=== PATIENT | male | born 1970 | race Caucasian/White ===

== ENCOUNTER 2018-03-24 20:31 | Emergency (ER) | payer BC ==
[~2018-03-24 20:31] MED LIST: Iopamidol 370 76% 100 ML VIAL ONE
[2018-03-24] MEDS ORDERED: Pantoprazole 40 MG VIAL ONE (20:56)
[2018-03-24] MEDS ORDERED: Sodium Chloride 0.9% 1,000 ML ONE (20:56)
[2018-03-24] MEDS ORDERED: Ondansetron HCl/PF 4 MG/2 ML Vial ONE (20:56)
[2018-03-24 21:23] LABS: #Basophils 0.1 thou/uL (0.0-0.2); #Lymphocytes 0.5 thou/uL (1.20-3.40); #Monocytes 0.7 thou/uL (0.11-0.59); #Neutrophils 13.6 thou/uL (1.40-6.50); %Basophils 0.4 % (0.0-1.0); %Eosinophils 0.1 % (0.0-10.0); %Lymphocytes 3.5 % (21.0-51.0); Hemoglobin 14.7 g/dL (14.0-18.0); Mean Corpuscular HGB CONC 33.4 g/dL (32.0-36.0); Mean Corpuscular Hemoglobin 27.7 pg (27.0-31.0); Mean Platelet Volume 7.6 fL (7.4-10.4); Platelet Count 238 thou/uL (130-400); RBC Distribution Width 11.8 % (11.5-14.5); White Blood Cell (WBC) Count 14.9 thou/uL (4.8-10.8)
[2018-03-24] MEDS ORDERED: Lidocaine Viscous Sol 2% 15 ml UD Cup ONE (21:29)
[2018-03-24] MEDS ORDERED: Mag-Al Plus 1200 MG/1200 MG/120 MG/30 ML UDCUP ONE (21:29)
[2018-03-24 21:34] LABS: Bilirubin Negative (Negative); Blood, Urine Negative (Negative); Clarity Clear (Clear); Glucose, Urine (Dipstick) Negative (Negative); Leukocyte Negative (Negative); Nitrite Negative (Negative); Protein, Urine (Dipstick) Negative (Neg-Trace); Urobilinogen 0.2 mg/dL (0.2-1.0); pH, Urine 5.5 (5.0-9.0)
[2018-03-24 21:41] LABS: ALT (SGPT) 59 U/L (8-55); AST (SGOT) 42 U/L (5-34); Albumin 4.2 g/dL (3.5-5.0); Alkaline Phosphatase 62 U/L (40-150); Anion Gap 14 mmol/L (10-20); BUN (Urea Nitrogen) 15 mg/dL (8.9-20.6); Bilirubin, Total 0.6 mg/dL (0.2-1.2); Calc. Creatinine Clearance 0 mL/min (70-130); Carbon Dioxide 26 mmol/L (22-29); Chloride 103 mmol/L (98-107); Estimated GFR-MDRD 72; Globulin 2.4 g/dL (2.4-3.5); Glucose 118 mg/dL (70-105); Lipase 25 U/L (8-78); Potassium 4.3 mmol/L (3.5-5.1); Protein, Total 6.6 g/dL (6.0-8.3); Sodium 139 mmol/L (136-145)
[2018-03-24 21:42] LABS: CKMB 1.2 ng/mL (0-6.6); Troponin I Less than 0.010 ng/mL (< 0.028)
--- NOTE | 2018-03-24 22:41 | CT ---
ABDOMEN CT WITH CONTRAST PELVIC CT WITH CONTRAST 03/24/18 HISTORY: Pain. Diarrhea. COMPARISON: None. TECHNIQUE: Abdomen and pelvic CT are performed with IV contrast. Enteric contrast was not administered. Coronal reformatted images are submitted for interpretation. FINDINGS: ABDOMEN CT: Lung bases demonstrate atelectatic changes. Heart size is normal. No pericardial effusion. The visual ized aorta has a normal caliber. No periaortic fat stranding. Nonspecific periportal edema. Portal vein is patent. Gallbladder is unremarkable. There are nonspecific, nonenlarged as well as mildly enlarged mesenteric lymph nodes. Correlate for m esenteric lymphadenitis. No mesenteric mass, free air or free fluid. Limited evaluation of the alimen tary canal due to lack of oral contrast. Gastric mucosa, duodenum and multiple normal caliber small b owel loops are normal. Ileocecal junction is normal. Normal caliber appendix. Scattered fecal materia l in a nondistended, nondilated colon. Occasional diverticulum. No diverticulitis. Liver, spleen, pancreas, and adrenal glands have appropriate enhancement. Heterogeneous enhancement of the left and right kidney with striated nephrogram phase suggesting pyel onephritis. Bilaterally, no obstructive uropathy. PELVIC CT: Nonspecific mucosal prominence of the urinary bladder. Correlate for cystitis. No pelvic masses, lymp hadenopathy or free air. No lytic or blastic lesions in the osseous structures. IMPRESSION: 1. Striated nephrogram phase. Pyelonephritis. Correlate with urinalysis. 2. Normal caliber appendix. 3. Urinary bladder mucosal prominence possibly due to inadequate distention. Correlate for cysti tis. POS: [facility]
== END 2018-03-24 23:10 | disposition home or self-care (01) ==
LOC: NAV ERS 20:31
DX: K29.00 Acute gastritis without bleeding (principal)
CPT/HCPCS: 74177; 80053; 81003; 82150; 82553; 83690; 84484; 85025; 87086; 93005; 96361; 96374; 96375; C9113; J2405; J7050